=== PATIENT | female | born 1960 | race African-American/Black ===

== ENCOUNTER 2020-11-08 12:21 | Emergency (ER) | payer OTHER ==
--- OUTSIDE RECORDS SUMMARY | 2020-11-08 12:24 | XMS REPORT | Continuity of Care Document ---
:1960 Author Organization [facility] Address [address] [place] [address] Care Team Providers Name Role Phone Unavailable Unavailable Unavailable Problems Condition Condition Condition Status Onset Resolution Last Treating Co mments Source Name Details Category Date Date Treatment Clinician Date Pain in Pain in Problem Active [facility] Right Right Problem Active [facility] Allergies, Adverse Reactions, Alerts This patient has no known allergies or adverse reactions. Medications Ordered Filled Start Stop Current Ordering Indication Dosage Frequency Signature Comments Components Source Medication Medication Date Date Medication? Clinician (SIG) Name Name Verapamil Verapamil Yes Herman not [facility] HCl ER HCl ER Jose defined [facility] XELJANZ XELJANZ Yes Herman not [facility] Jose defined [facility] Prednisolon Prednisolon Yes Herman not [facility] e-Moxifloxa e-Moxifloxa Jose defined [facility] zo [facility] Cyclobenzap Cyclobenzap Yes Herman not [facility] rine HCl rine HCl Jose defined [facility] Methotrexat Methotrexat Yes Herman not [facility] e e Jose defined [facility] Pilocarpine Pilocarpine Yes Herman not [facility] HCl HCl Jose defined [facility] Acetaminoph Acetaminoph Yes Herman not [facility] en-Codeine en-Codeine Jose defined [facility] Procedures This patient has no known procedures. Encounters Start End Encounter Admission Attending Care Care Encounter Source Date/Time Date/Time Type Type Clinicians Facility Department ID 2018-04-06 2018-04-06 Outpatient Letha Logan [id number] [facility] 11:09[facility]00 11[facility]09[facility] 2018-03-08 2018-03-08 Outpatient Letha Logan [id number] [facility] [address] 11:00[facility]00 11[facility]00[facility]00 [facility] Results This patient has no known results.
--- NOTE | 2020-11-08 14:44 | RAD REPORT ---
EXAM DESCRIPTION: CT - Spine Lumbar Wo Con - 11/08/2020 2:31 pm CLINICAL HISTORY: Radiculopathy. PAIN COMPARISON: No comparisons TECHNIQUE: Axial noncontrast CT imaging of the lumbar spine was performed with coronal and sagittal re-formatted images. All CT scans are performed using dose optimization technique as appropriate and may include automated exposure control or mA/KV adjustment according to patient size. FINDINGS: No acute lumbar spine fracture seen. No aggressive marrow pattern or malalignment. Paraspinal tissues are normal in thickness. No paraspinal abscess or hematoma seen. There is degenerative change, mild to moderate in severity involving the lower lumbar spine. No high- grade canal stenosis identified. IMPRESSION: No acute lumbar spine abnormality. Mild to moderate lower lumbar degenerative spondylosis.
--- NOTE | 2020-11-08 15:06 | RAD REPORT ---
EXAM DESCRIPTION: RAD - Chest Pa And Lat (2 Views) - 11/08/2020 2:38 pm CLINICAL HISTORY: CHEST PAIN Chest pain. COMPARISON: CHEST SINGLE VIEW dated 07/26/2014; CHEST PA AND LAT 2 VIEW dated 07/26/2014; CHEST PA AND LAT 2 VIEW dated 09/27/2013; CHEST SINGLE VIEW dated 07/25/2012 FINDINGS: The lungs are clear. The heart is upper limit of normal in size. No displaced fractures. IMPRESSION: No acute or concerning finding suspected.
--- NOTE | 2020-11-08 15:37 | ER ---
Nurse's Notes [facility] Name: Brooke Jackson Age: 60 yrs Sex: Female : 1960 Arrival Date: 11/08/2020 Time: 12:23 Bed 12 Private MD: Germán Concepcion E Diagnosis: Low back pain Presentation: 11/08 13:25 Chief complaint: Patient states: Fell on Aug 13, reports pain to right mid-back and jl7 right rib cage. Coronavirus screen: Client denies travel out of the [place] in the last 14 days. At this time, the client does not indicate any symptoms associated with coronavirus-19. Ebola Screen: No symptoms or risks identified at this time. Initial Sepsis Screen: Does the patient meet any 2 criteria? No. Patient's initial sepsis screen is negative. Does the patient have a suspected source of infection? No. Patient's initial sepsis screen is negative. Risk Assessment: Do you want to hurt yourself or someone else? Patient reports no desire to harm self or others. Onset of symptoms was August 13, 2020. 13:25 Method Of Arrival: Ambulatory [facility] 13:25 Acuity: CARRIE 4 jl7 Triage Assessment: 13:29 General: Appears in no apparent distress. uncomfortable, Behavior is calm, cooperative, jl7 appropriate for age. Pain: Complains of pain in posterior aspect of right lateral abdomen and anterior aspect of right lateral abdomen Pain currently is 8 out of 10 on a pain scale. Historical: - Allergies: 13:29 No Known Allergies; jl7 - PMHx: 13:29 Hypertension; Rheumatoid Arthritis; CVA; jl7 - PSHx: 13:29 dental; Carotid stent; jl7 - Immunization history:: Adult Immunizations up to date, Client reports receiving the 2nd dose of the Covid vaccine. - Social history:: Smoking status: Patient reports the use of cigarette tobacco products, smokes one-half pack cigarettes per day. Screenin:35 Abuse screen: Denies threats or abuse. Denies injuries from another. Nutritional jl7 screening: No deficits noted. Tuberculosis screening: No symptoms or risk factors identified. Fall Risk None identified. Assessment: 15:35 Reassessment: ERP at bedside discussing results and POC. jl7 Vital Signs: 13:25 BP 148 / 83; Pulse 80; Resp 17; Temp 97.1; Pulse Ox 99% ; Weight 92.99 kg; Height 5 ft. jl7 2 in. (157.48 cm); Pain 8/10; 13:25 Body Mass Index 37.49 (92.99 kg, 157.48 cm) jl7 ED Course: 12:23 Patient arrived in ED. mr 12:23 Germán Concepcion MD is Private Physician. mr 13:26 Triage completed. jl7 13:29 Arm band placed on right wrist. jl7 13:41 Anthony Ge, MICHELE is Primary Nurse. jl7 14:00 Patient has correct armband on for positive identification. Call light in reach. Side jl7 rails up X 1. 14:15 Mehran Monk PA is PHCP. jr8 14:15 Bj Aguilera MD is Attending Physician. jr8 14:31 CT Lumbar Spine Wo Con In Process Unspecified. EDMS 14:38 XRAY Chest Pa And Lat (2 Views) In Process Unspecified. EDMS 15:36 Germán Concepcion MD is Referral Physician. jr8 15:43 No provider procedures requiring assistance completed. Patient did not have IV access jl7 during this emergency room visit. Administered Medications: No medications were administered Outcome: 15:36 Discharge ordered by . jr8 15:43 Discharged to home ambulatory. jl7 15:43 Condition: stable 15:43 Discharge instructions given to patient, Instructed on discharge instructions, follow up and referral plans. medication usage, Demonstrated understanding of instructions, follow-up care, medications, Prescriptions given X 3. 15:44 Patient left the ED. jl7 Signatures: Dispatcher [employer] [facility] Polo Adrianne mr Mehran Monk PA PA jrAnthony Valdez, RN RN jl7
--- NOTE | 2020-11-08 15:37 | EDPHYS ---
Physician Documentation [facility] Name: Brooke Jackson Age: 60 yrs Sex: Female : 1960 Arrival Date: 11/08/2020 Time: 12:23 Bed 12 Private MD: Germán Concepcion E ED Physician Bj Aguilera HPI: 11/08 15:19 This 60 yrs old Black Female presents to ER via Ambulatory with complaints of Fall jr8 Injury, Back Pain. 15:19 Onset: The symptoms/episode began/occurred acutely, 3 month(s) ago. Severity of jr8 symptoms: At their worst the symptoms were moderate. The patient has not experienced similar symptoms in the past. The patient has not recently seen a physician. Patient stated that she fell back in July on right side and back. Has low back pain that is constant but since the fall in July has had increased pain that will not go away . Historical: - Allergies: 13:29 No Known Allergies; jl7 - PMHx: 13:29 Hypertension; Rheumatoid Arthritis; CVA; jl7 - PSHx: 13:29 dental; Carotid stent; jl7 - Immunization history:: Adult Immunizations up to date, Client reports receiving the 2nd dose of the Covid vaccine. - Social history:: Smoking status: Patient reports the use of cigarette tobacco products, smokes one-half pack cigarettes per day. ROS: 15:19 Eyes: Negative for injury, pain, redness, and discharge, ENT: Negative for injury, jr8 pain, and discharge, Neck: Negative for injury, pain, and swelling, Cardiovascular: Negative for chest pain, palpitations, and edema Respiratory: Negative for shortness of breath, cough, wheezing, and pleuritic chest pain, Abdomen/GI: Negative for abdominal pain, nausea, vomiting, diarrhea, and constipation, MS/Extremity: Negative for injury and deformity, Skin: Negative for injury, rash, and discoloration, Neuro: Negative for headache, weakness, numbness, tingling, and seizure. 15:19 Back: Positive for pain at rest, pain with movement, of the low back area. Exam: 15:19 Constitutional: This is a well developed, well nourished patient who is awake, alert, jr8 and in no acute distress. Head/Face: Normocephalic, atraumatic. Neck: Trachea midline, no thyromegaly or masses palpated, and no cervical lymphadenopathy. Supple, full range of motion without nuchal rigidity, or vertebral point tenderness. No Meningismus. Cardiovascular: Regular rate and rhythm with a normal S1 and S2. No gallops, murmurs, or rubs. Normal PMI, no JVD. No pulse deficits. Respiratory: Lungs have equal breath sounds bilaterally, clear to auscultation and percussion. No rales, rhonchi or wheezes noted. No increased work of breathing, no retractions or nasal flaring. Abdomen/GI: Soft, non-tender, with normal bowel sounds. No distension or tympany. No guarding or rebound. No evidence of tenderness throughout. Skin: Warm, dry with normal turgor. Normal color with no rashes, no lesions, and no evidence of cellulitis. MS/ Extremity: Pulses equal, no cyanosis. Neurovascular intact. Full, normal range of motion. Neuro: Awake and alert, GCS 15, oriented to person, place, time, and situation. Cranial nerves II-XII grossly intact. Motor strength 5/5 in all extremities. Sensory grossly intact. Cerebellar exam normal. Normal gait. 15:19 Chest/axilla: Palpation: tenderness, that is mild, of the right lateral anterior chest. 15:19 Back: pain, that is mild, of the lumbar area, right mid back and right low back, ROM is painful, normal spinal alignment noted, vertebral tenderness, is appreciated at L2 and L3. Vital Signs: 13:25 BP 148 / 83; Pulse 80; Resp 17; Temp 97.1; Pulse Ox 99% ; Weight 92.99 kg; Height 5 ft. jl7 2 in. (157.48 cm); Pain 8/10; 13:25 Body Mass Index 37.49 (92.99 kg, 157.48 cm) jl7 MDM: 14:15 Patient medically screened. jr8 15:10 Data reviewed: vital signs, nurses notes, radiologic studies, CT scan, plain films. jr8 Data interpreted: Pulse oximetry: on room air is 99 %. Interpretation: normal. Counseling: I had a detailed discussion with the patient and/or guardian regarding: the historical points, exam findings, and any diagnostic results supporting the discharge/admit diagnosis, radiology results, the need for outpatient follow up, a family practitioner, to return to the emergency department if symptoms worsen or persist or if there are any questions or concerns that arise at home. 11/08 14:19 Order name: CT Lumbar Spine Wo Con; Complete Time: 14:48 jr8 11/08 14:19 Order name: XRAY Chest Pa And Lat (2 Views); Complete Time: 15:10 jr8 Administered Medications: No medications were administered Disposition: 11/08/20 15:36 Discharged to Home. Impression: Low back pain. - Condition is Stable. - Discharge Instructions: Back Pain, Adult, Heat Therapy. - Prescriptions for Robaxin 500 mg Oral Tablet - take 2 tablet by ORAL route every 6 hours As needed; 40 tablet. Tramadol 50 mg Oral Tablet - take 1 tablet by ORAL route every 8 hours as needed; 20 tablet. Medrol (Doug) 4 mg Oral Tablets, Dose Pack - take 1 tablet by ORAL route as directed - follow package instructions; 1 packet. - Medication Reconciliation Form, Thank You Letter, Antibiotic Education, Prescription Opioid Use form. - Follow up: Germán Concepcion MD; When: 5 - 6 days; Reason: Recheck today's complaints, Continuance of care, Re-evaluation by your physician. - Problem is new. - Symptoms have improved. Addendum: 11/10/2020 07:41 Co-signature as Attending Physician, Bj Aguilera MD I agree with the assessment and c oconnell plan of care. Signatures: Dispatcher [employer] EDBj Moran MD MD cha Roszak, Josh, PA PA jr8 Anthony Ge, RN RN jl7 Corrections: (The following items were deleted from the chart) 11/08 15:44 15:36 11/08/2020 15:36 Discharged to Home. Impression: Low back pain. Condition is jl7 Stable. Forms are Medication Reconciliation Form, Thank You Letter, Antibiotic Education, Prescription Opioid Use. Follow up: Germán Concepcion; When: 5 - 6 days; Reason: Recheck today's complaints, Continuance of care, Re-evaluation by your physician. Problem is new. Symptoms have improved. jr8
[2020-11-08 15:56] VITALS: BP 148/83; TEMP 97.1; O2SAT 99
== END 2020-11-08 15:44 | disposition home or self-care (01) ==
LOC: ER 12:21
DX: M54.5 Low back pain (principal); I10 Essential (primary) hypertension; F17.210 Nicotine dependence, cigarettes, uncomplicated; Z95.818 Presence of other cardiac implants and grafts
CPT/HCPCS: 71046; 72131; 99283

== ENCOUNTER 2024-08-31 09:10 | Emergency (ER) | payer OTHER ==
--- OUTSIDE RECORDS SUMMARY | 2024-08-31 09:13 | XMS REPORT | Continuity of Care Document ---
Author Name Unknown Address [address] [place] [address] [facility] [employer] Address [address] [place] [address] Care Team Providers Care Interface Analyst Name Role Phone Germán Concepcion Primary Care Physician [phone] Nevaeh Head Attending Clinician Unavailable Radiology Attending Clinician Unavailable RADIOLOGY Attending Clinician Unavailable JGIAR ZAMORA Attending Clinician Unavailable Vaccine, Ang Db Cbc Fam Attending Clinician Unav Jigar Rodriguez MD Attending Clinician [phone] DONIS WOLFF Attending Clinician Unavailable Germán Concepcion Admitting Clinician Unavailable Payers Payer Name Policy Type Policy Number Effective Date Expirati on Date Source Problems Condition Name Condition Details Condition Category Status Onset Date Resolution Date Last Treatment Date Treating Clinician Comments Source Pain in joint of right knee Pain in joint of right knee Problem Active [facility] Right sided sciatica Right sided sciatica Problem Active [facility] Allergies, Adverse Reactions, Alerts Allergy Name Allergy Type Status Severity Reaction(s) Onset Date Inactive Date Treating Clinician Comments Source NO KNOWN ALLERGIE S Drug Class Active [facility] Social History Social Habit Start Date Stop Date Quantity Comments Source Sexual orientation [facility] Sex assigned at 1960 00:00:00 1960 00:00:00 [facility] Smoking Status Start Date Stop Date Source Tobacco smoking consumption unknown [facility] Medications Ordered Medication Name Filled Medication Name Start Date Stop Date Current Medication? Ordering Clinician Indication Dosage Frequency Signature (SIG) Comments Components Source Cyclobenzap rine HCl Cyclobenzap rine HCl Yes Herman Jose not defined [facility] Methotrexat e Methotrexat e Yes Herman Jose not defined [facility] Pilocarpine HCl Pilocarpine HCl Yes Herman Jose not defined [facility] Acetaminoph en-Codeine #3 Acetaminoph en-Codeine #3 Yes Herman Jose not defined [facility] Verapamil HCl ER Verapamil HCl ER Yes Herman Jose not defined [facility] XELJANZ XELJANZ Yes Herman Jose not defined [facility] Prednisolon e-Moxifloxa zo Prednisolon e-Moxifloxa zo Yes Herman Jose not defined [facility] Immunizations Ordered Immunization Name Filled Immunization Name Date Status Comments Source SARS-COV-2 COVID-19 MODERNA BOOSTER VACCINE 2021-05-13 00:00:00 Completed [facility] SARS-COV-2 COVID-19 MODERNA 0.25ML BOOSTER VACCINE 2021-05-13 00:00:00 Completed [facility] SARS-COV-2 COVID-19 MODERNA VACCINE 2020-09-02 00:00:00 Completed [facility] SARS-COV-2 COVID-19 MODERNA 12+ YRS VACCINE 2020-09-02 00:00:00 Completed [facility] SARS-COV-2 COVID-19 MODERNA 12+ YRS VACCINE 2020-08-05 00:00:00 Completed [facility] SARS-COV-2 COVID-19 MODERNA VACCINE 2020-08-05 00:00:00 Completed [facility] Procedures Procedure Date / Time Performed Performing Clinicia n Source DEXA AXIAL (HIP AND SPINE) 2024-04-14 15:48:46 Requisition, Paper [facility] CT LUNG CANCER SCREENING 2024-04-14 15:37:28 Requisition, Paper [facility] SARS-COV-2 COVID-19 VACCINE BOOSTER,0.25ML,IM (MODERNA) 2021-05-13 20:49:21 Doctor Unassigned, [address] [facility] Encounters Start Date/Time End Date/Time Encounter Type Admission Type Attending Clinicians Care Facility Care Department Encounter ID Source 2022-08-01 15:52:39 Outpatient [facility] [id number] [facility] 2021-12-17 14:02:10 Outpatient [facility] [id number] [facility] 2021-07-24 10:59:21 Outpatient Nevaeh Head [facility] [id number] [facility] 2021-07-24 10:57:37 Outpatient Nevaeh Head [facility] [id number] [facility] 2024-04-14 10:21:38 2024-04-14 23:59:00 Hospital Encounter Radiology Radiology [facility] [id number] [facility] 2024-04-14 10:20:57 2024-04-14 10:20:57 Hospital Encounter Radiology Radiology [facility] [id number] [facility] 2024-04-14 10:20:57 2024-04-14 10:20:57 Outpatient R RADIOLOGY [facility] [id number] [facility] 2024-04-07 00:00:00 2024-04-07 00:00:00 Outpatient R RADIOLOGY [facility] [id number] [facility] 2024-04-06 00:00:00 2024-04-06 00:00:00 Outpatient R RADIOLOGY [facility] [id number] [facility] 2021-05-13 14:00:00 2021-05-13 14:59:50 Outpatient R JIGAR ZAMORA [facility] [id number] [facility] 2021-05-13 13:40:09 2021-05-13 13:50:09 Imm/Inj Visit Vaccine, Ang Db Cbc Fam Jigar Zamora [facility] [id number] [facility] 2020-09-02 11:15:00 2020-09-02 11:15:00 Outpatient DONIS LANG [facility] [id number] [facility] 2020-08-05 11:40:00 2020-08-05 11:40:00 Outpatient [facility] [id number] [facility] 2018-04-06 11:09:00 2018-04-06 11:09:00 Out[facility] [id number] [facility] 2018-03-08 11:00:00 2018-03-08 11:00:00 Outpatient [facility] [id number] [facility] Results Test Description Test Time Test Comments Results Resul t Comments Source DEXA AXIAL (HIP AND SPINE) 2024-03-29 15:50:35 HISTORY: Osteoporosis screening study. TECHNIQUE: Bone density estimation is done using DEXA scan, over the righthip and lumbar spines. FINDINGS: Details of the results are enclosed for your review. The summaryis as follows. RIGHT HIP:BMD value is 0.844 gm/sq cm, with T-score of - 1.3. Estimated BMD in theneck is 0.812 g/sq cm with T score of -1.6. LUMBAR SPINES:Average BMD value from L1 through L4 is 1.113 gm/sq cm, with T-score - 0.7.Cholecystectomy clips visualized. CONCLUSION: Mild osteopenia in right femur. ASSESSMENT: WHO-definitions: T-score normal: +/- 1 SD around the meanosteopenia: >1 to 2.4 SD below the meanosteoporosis: >2.5 SD below the meanFracture risk doubles for each 1.5 SD below the mean. [facility] CT LUNG CANCER SCREENING 2024-10-1 7 15:46:01 Result: Exam Reviewed: CT LUNG CA SCREEN LOW DOSE Comparison: ?None. Clinical Indication: ?63 -year-old, ?female for lung cancer screening TECHNIQUE: A low dose helical CT CHEST was performed. The chest was studiedin helical mode with prospective reconstructions of 1 mm slices.Multiplanar MIPS were reconstructed from the axial images. NOTE: This studywas performed for the specific purposes of lung cancer screening and is notan alternative to diagnostic chest CT. RADIATION DOSE: CT dose length product DLP (Dose Length Product) = 1.53+43.59 mGycm FINDINGS: Lung Nodules: Lung Parenchyma: Minimal linear fibrotic changes in posterior left upperlobe. Subtle findings of small emphysematous bulla is in the lungs. Airways: Unremarkable Pleura: Focal nodularity along the posterior left lower chest (3:114, 134),medial right middle lobe (3:143 through 127) Mediastinum: No abnormality is noted. Lymph Nodes: Calcifications noted in some of the right paratracheal andsubcarinal lymph nodes. Thyroid Gland: Unremarkable Esophagus: Normal in appearance Heart and Pericardium: Normal heart size and normal caliber of the greatvessels. ?No pericardial effusion. Triple-vessel coronary atherosclerosis. Abdomen: Normal in appearance in this low-dose evaluation. Bones, and soft tissues: Dense calcifications in the upper medial leftchest/breast tissue noted. Cholecystectomy clips are seen. Matrix/lowerthoracic degenerative spondylosis with dextroscoliosis. [facility]
[2024-08-31] MEDS ORDERED: NA CHLORIDE 0.9% 500 ML ONE ×2 (09:48→11:51)
[2024-08-31 10:05] LABS: Absolute Lymphocytes (CBC) 0.8 K/uL (0.7-4.9); Absolute Monocytes 0.2 K/uL (0.1-1.3); Basophils % 1.2 % (0-1.3); Eosinophils % 1.8 % (0-4.4); Hematocrit 32.5 % (36.0-45.0); Hemoglobin 10.8 g/dL (12.0-15.0); Lymphocytes % 38.2 % (15.3-44.8); MCH 31.6 pg (27.0-35.0); MCHC 33.4 g/dL (32.0-36.0); MCV 94.7 fL (80-100); Neutrophils % 47.8 % (41.7-73.7); Nucleated Red Blood Cells % 0.6 % (0-0); Platelets 153 thou/uL (152-406); RBC Red Blood Cell Count 3.43 M/uL (3.86-4.86)
[2024-08-31 10:24] LABS: Anion Gap 7.5 mEq/L (5.0-15.0); Magnesium 1.9 mg/dL (1.6-2.4)
[2024-08-31 10:27] LABS: Thyroid Stimulating Hormone 23.2 uIU/mL (0.358-3.740)
[2024-08-31 10:29] LABS: Potassium 2.5 mEq/L (3.5-5.1)
--- NOTE | 2024-08-31 11:29 | RAD REPORT ---
EXAMINATION: ONE VIEW CHEST XR CLINICAL INDICATION: Female, 63 years old.,COUGH TECHNIQUE: Frontal chest projection is submitted. Examination is limited by patient positioning and t echnique. COMPARISON: 11/08/2020 FINDINGS: The lungs are well inflated and clear. No pneumothorax or sizable effusion. The heart is normal in s ize. Mediastinal contours are unremarkable. Implantable rhythm monitoring device along the left chest wall, stable. IMPRESSION: No acute intrathoracic abnormalities.
[2024-08-31] MEDS ORDERED: POTASSIUM 25 MEQ EFFERV TAB ONE (11:51)
[2024-08-31] MEDS ORDERED: KCL 20 MEQ/100 mL IVPB 100 ML IV ONE (11:52)
--- NOTE | 2024-08-31 14:07 | ER ---
Nurse's Notes [facility] Name: Brooke Jackson Age: 63 yrs Sex: Female : 1960 Arrival Date: 08/31/2024 Time: 09:10 Bed 7 Private MD: Diagnosis: Hypokalemia Presentation: 08/31 09:25 Chief complaint: Patient states: Potassium 2.8 with blood draw yesterday. Was told to 1 come to ED for further evaluation. Feels weak and dizzy for a few days. Coronavirus screen: Client denies travel out of the [place] in the last 14 days. cough unrelated to allergies, Client presents with at least one sign or symptom that may indicate coronavirus-19. Standard/surgical mask placed on the client. Ebola Screen: Patient denies travel to an Ebola-affected area in the 21 days before illness onset. Initial Sepsis Screen: Does the patient meet any 2 criteria? No. Patient's initial sepsis screen is negative. Does the patient have a suspected source of infection? No. Patient's initial sepsis screen is negative. Risk Assessment: Do you want to hurt yourself or someone else? Patient reports no desire to harm self or others. Onset of symptoms was August 30, 2024. 09:25 Method Of Arrival: Ambulatory 1 09:25 Acuity: CARRIE 2 1 Triage Assessment: 13:30 General: Appears. ph Historical: - Allergies: 09:18 No Known Drug Allergies; ll1 - PMHx: 09:18 CVA; Hypertension; Rheumatoid Arthritis; 1 - Immunization history:: Adult Immunizations up to date. - Infectious Disease History:: Denies. - Social history:: Smoking status: Patient denies any tobacco usage or history of. - Family history:: not pertinent. Screenin:29 [facility] ED Fall Risk Assessment (Adult) History of falling in the last 3 months, ph including since admission No falls in past 3 months (0 pts) Confusion or Disorientation No (0 pts) Intoxicated or Sedated No (0 pts) Impaired Gait No (0 pts) Mobility Assist Device Used No (0 pt) Altered Elimination No (0 pt) Score/Fall Risk Level 0 - 2 = Low Risk Oriented to surroundings, Maintained a safe environment, Hourly rounding (assess needs \T\ fall precautionary measures) done. Abuse screen: Denies threats or abuse. Denies injuries from another. Nutritional screening: No deficits noted. Tuberculosis screening: No symptoms or risk factors identified. Assessment: 10:30 General: Appears in no apparent distress. comfortable, Behavior is calm, cooperative. ph Pain: Denies pain. Neuro: Level of Consciousness is awake, alert, obeys commands, Oriented to person, place, time, situation. Cardiovascular: Reports lightheadedness, Capillary refill < 3 seconds in bilateral fingers Patient's skin is warm and dry. Respiratory: Airway is patent Respiratory effort is even, unlabored. Derm: Skin is normal. Musculoskeletal: Circulation, motion, and sensation intact. Range of motion: intact in all extremities. Vital Signs: 09:25 BP 142 / 93; Pulse 73; Resp 17; Temp 98; Pulse Ox 99% ; Pain 0/10; ll1 12:09 BP 132 / 80; Pulse 75; Pulse Ox 98% ; rs6 13:31 BP 128 / 75; Pulse 71; Resp 18; Temp 98; Pulse Ox 99% on R/A; ph 09:25 Pain Scale: Adult ll1 ED Course: 09:15 Patient arrived in ED. al6 09:17 Josef Morris MD is Attending Physician. rt 09:19 Arm band placed on. ll1 09:26 Triage completed. ll1 10:27 TSH Sent. bc6 10:27 Basic Metabolic Panel Sent. bc6 10:27 Magnesium Sent. bc6 10:27 Troponin HS Sent. bc6 10:27 Initial lab(s) drawn, by me, sent to lab. Missed attempt(s): 22 gauge in left bc6 antecubital area. Bleeding controlled, band aid applied, catheter tip intact. 10:27 Inserted saline lock: 22 gauge in right antecubital area, using aseptic technique. ap3 Blood collected. Flushed with 10 mL NS. 10:37 XRAY Chest (1 view) In Process Unspecified. EDMS 10:43 Client placed on continuous cardiac and pulse oximetry monitoring. NIBP monitoring ap3 applied. vehicle monitor technician on. Pulse ox on. NIBP on. 10:43 EKG done, by ED staff, reviewed by Josef Morris MD. ap3 12:24 Felipa Sanders, RN is Primary Nurse. ph 13:29 Patient has correct armband on for positive identification. Bed in low position. Call ph light in reach. Side rails up X2. 14:45 Provided Education on: discharge instructions . ap3 14:45 No provider procedures requiring assistance completed. IV discontinued, intact, ap3 bleeding controlled, No redness/swelling at site. Pressure dressing applied. Administered Medications: 10:29 Drug: NS 0.9% IV 500 ml 500 ml IV at 1 bolus once; to be given as a bolus over 30 ap3 minutes Volume: 500 ml; Route: IV; Rate: 1 bolus; Site: left antecubital; 11:00 Follow up: Response: No adverse reaction; IV Status: Completed infusion; IV Intake: ph 500ml 12:25 Drug: Potassium PO Effervescent Tablet 50 mEq PO once; dissolve in 4 ounces of water or ph juice Route: PO; 14:44 Follow up: Response: No adverse reaction ap3 12:25 Drug: Potassium Chloride IV 20 mEq IV at calculated rate once; administer over 1-2 ph hours Route: IV; Rate: calculated rate; Site: left antecubital; 14:45 Follow up: IV Status: Completed infusion ap3 Medication: 13:31 VIS not applicable for this client. ph Intake: 11:00 IV: 500ml; Total: 500ml. ph Outcome: 14:07 Discharge ordered by . rt 14:45 Discharged to home ambulatory, with family, ap3 14:45 Condition: good 14:45 Discharge instructions given to patient, Instructed on discharge instructions, follow up and referral plans. medication usage, Demonstrated understanding of instructions, follow-up care, medications, Prescriptions given X 1, 14:45 Patient left the ED. ap3 Signatures: Dispatcher [employer] Felipa Karimi RN RN Sofia Pedraza RN RN ap3 Ana Maria He RN RN ll1 Josef Morris MD MD rt Rizwana Mcneil Ryan rs6 Saloni Purcell6
--- NOTE | 2024-08-31 14:07 | EDPHYS ---
Physician Documentation [facility] Name: Brooke Jackson Age: 63 yrs Sex: Female : 1960 Arrival Date: 08/31/2024 Time: 09:10 Bed 7 Private MD: ED Physician Josef Morris HPI: 08/31 10:53 This 63 yrs old Black Female presents to ER via Ambulatory with complaints of Abnormal rt Lab Results. 10:53 Patient presents to the ED with reported low potassium on outpatient labs drawn rt yesterday. Patient reportedly has been feeling weak, has had a cough and generally not feeling well. Denies other acute complaints at this time, symptoms are moderate in severity, no other aggravating or alleviating factors.. Historical: - Allergies: :18 No Known Drug Allergies; ll1 - PMHx: :18 CVA; Hypertension; Rheumatoid Arthritis; ll1 - Immunization history:: Adult Immunizations up to date. - Infectious Disease History:: Denies. - Social history:: Smoking status: Patient denies any tobacco usage or history of. - Family history:: not pertinent. ROS: 11:09 Constitutional: Negative for fever, chills, and weight loss, Cardiovascular: Negative rt for chest pain, palpitations, and edema, Respiratory: Negative for shortness of breath, cough, wheezing, and pleuritic chest pain, Abdomen/GI: Negative for abdominal pain, nausea, vomiting, diarrhea, and constipation, MS/Extremity: Negative for injury and deformity, Skin: Negative for injury, rash, and discoloration, 11:09 Neuro: Positive for weakness, Negative for altered mental status, Exam: 11:09 Constitutional: This is a well developed, well nourished patient who is awake, alert, rt and in no acute distress. Chest/axilla: Normal chest wall appearance and motion. Nontender with no deformity. No lesions are appreciated. Cardiovascular: Regular rate and rhythm with a normal S1 and S2. No gallops, murmurs, or rubs. Normal PMI, no JVD. No pulse deficits. Respiratory: Lungs have equal breath sounds bilaterally, clear to auscultation and percussion. No rales, rhonchi or wheezes noted. No increased work of breathing, no retractions or nasal flaring. Abdomen/GI: Soft, non-tender, with normal bowel sounds. No distension or tympany. No guarding or rebound. No evidence of tenderness throughout. Skin: Warm, dry with normal turgor. Normal color with no rashes, no lesions, and no evidence of cellulitis. MS/ Extremity: Pulses equal, no cyanosis. Neurovascular intact. Full, normal range of motion. 11:09 ECG was reviewed by the Attending Physician. Vital Signs: 09:25 BP 142 / 93; Pulse 73; Resp 17; Temp 98; Pulse Ox 99% ; Pain 0/10; ll1 12:09 BP 132 / 80; Pulse 75; Pulse Ox 98% ; rs6 13:31 BP 128 / 75; Pulse 71; Resp 18; Temp 98; Pulse Ox 99% on R/A; ph 09:25 Pain Scale: Adult ll1 MDM: 09:23 Medical Screening Exam initiated rt 16:30 Differential Diagnosis Hypokalemia, hypomagnesemia. Data reviewed: vital signs, nurses rt notes, lab test result(s), EKG. Consideration of Admission/Observation Escalation of care including admission/observation considered. 16:32 Consideration of Admission/Observation Patient with hypokalemia, no other significant rt lab abnormalities, EKG is unremarkable. Symptoms are improving after potassium repletion, no benefit from admission at this time, is stable for outpatient care, return precautions discussed.. I considered the following discharge prescriptions or medication management in the emergency department Medications were administered in the Emergency Department. See MAR. Care significantly affected by the following chronic conditions: Hypertension. Counseling: I had a detailed discussion with the patient and/or guardian regarding the historical points, exam findings, and any diagnostic results supporting the discharge/admit diagnosis, lab results, the need for outpatient follow up, to return to the emergency department if symptoms worsen or persist or if there are any questions or concerns that arise at home. Response to treatment: the patient's symptoms have markedly improved after treatment. 08/31 09:31 Order name: Basic Metabolic Panel; Complete Time: 10:51 rt 08/31 09:31 Order name: CBC with Diff; Complete Time: 10:29 rt 08/31 09:31 Order name: Magnesium; Complete Time: 10:51 rt 08/31 09:31 Order name: Troponin HS; Complete Time: 10:51 rt 08/31 09:31 Order name: TSH; Complete Time: 10:51 rt 08/31 10:32 Order name: T4 Free; Complete Time: 10:51 EDMS 08/31 09:31 Order name: XRAY Chest (1 view); Complete Time: 11:32 rt 08/31 09:31 Order name: Cardiac monitoring; Complete Time: 10:43 rt 08/31 09:31 Order name: EKG - Nurse/Tech; Complete Time: 10:43 rt 08/31 09:31 Order name: IV Saline Lock; Complete Time: 10:28 rt 08/31 09:31 Order name: Labs collected and sent; Complete Time: 10:27 rt 08/31 09:31 Order name: O2 Per Protocol; Complete Time: 10:43 rt 08/31 09:31 Order name: O2 Sat Monitoring; Complete Time: 10:43 rt EC:09 Rate is 70 beats/min. Rhythm is regular, Normal Sinus Rhythm with No ectopy. QRS [place] rt is Normal. [place] interval is normal. QRS interval is normal. QT interval is normal. No Q waves. T waves are Normal. No ST changes noted. Interpreted by me. Administered Medications: 10:29 Drug: NS 0.9% IV 500 ml 500 ml IV at 1 bolus once; to be given as a bolus over 30 ap3 minutes Volume: 500 ml; Route: IV; Rate: 1 bolus; Site: left antecubital; 11:00 Follow up: Response: No adverse reaction; IV Status: Completed infusion; IV Intake: ph 500ml 12:25 Drug: Potassium PO Effervescent Tablet 50 mEq PO once; dissolve in 4 ounces of water or ph juice Route: PO; 14:44 Follow up: Response: No adverse reaction ap3 12:25 Drug: Potassium Chloride IV 20 mEq IV at calculated rate once; administer over 1-2 ph hours Route: IV; Rate: calculated rate; Site: left antecubital; 14:45 Follow up: IV Status: Completed infusion ap3 Disposition Summary: 08/31/24 14:07 Discharge Ordered Notes: Location: Home rt Problem: new rt Symptoms: have improved rt Condition: Stable rt Diagnosis - Hypokalemia rt Followup: rt - With: Private Physician - When: 2 - 3 days - Reason: Discharge Instructions: - Discharge Summary Sheet rt - Hypokalemia rt Forms: - Medication Reconciliation Form rt - Antibiotic Education rt - Prescription Opioid Use rt - Patient Portal Instructions rt - Leadership Thank You Letter rt Prescriptions: - Potassium Chloride 10 mEq Oral Tablet - take 1 tablet ORAL route every 12 hours; 30 tablet; Refills: 0, Product rt Selection Permitted Signatures: Dispatcher [employer] EDFelipa Spicer, RN RN Sofia Pedroza RN RN ap3 Ana Maria He RN RN ll1 Josef Morris MD MD rt Corrections: (The following items were deleted from the chart) 09:32 09:32 BASIC METABOLIC PANEL+C.LAB.BRZ ordered. EDMS EDMS 09:32 09:32 CBC+H.LAB.BRZ ordered. EDMS EDMS 09:32 09:32 MAGNESIUM+C.LAB.BRZ ordered. EDMS EDMS 09:32 09:32 Troponin High Sensitivity+C.LAB.BRZ ordered. EDMS EDMS 09:32 09:32 THYROID STIMULAT HORMONE+C.LAB.BRZ ordered. EDMS EDMS 09:32 09:32 Chest Single View+RAD.RAD.BRZ ordered. EDMS EDMS
[2024-08-31 15:12] VITALS: TEMP 98
[2024-08-31 15:18] VITALS: BP 128/75; O2SAT 99
== END 2024-08-31 14:45 | disposition home or self-care (01) ==
LOC: ER 09:10 → SUPCPDRO 09:10 → ER 14:45
DX: E87.6 Hypokalemia (principal); R05.9 Cough, unspecified
CPT/HCPCS: 85025; 80048; 36415; 83735; 84443; 84484; 84439; 71045; J3480; J7040 ×2; 93005

== ENCOUNTER 2024-09-06 11:16 | Emergency (ER) | payer OTHER ==
--- OUTSIDE RECORDS SUMMARY | 2024-09-06 11:19 | XMS REPORT | Continuity of Care Document ---
Author Name Unknown Address [address] [place] [address] [facility] Address [address] [place] [address] Care Team Providers Care [employer] Energy Advisor Name Role Phone Germán Concepcion Primary Care Physician [phone] Nevaeh Head Attending Clinician Unavailable Radiology Attending Clinician Unavailable RADIOLOGY Attending Clinician Unavailable JIGAR ZAMORA Attending Clinician Unavailable Vaccine, Ang Db Cbc Fam Attending Clinician Unav Jigar Rodriguez MD Attending Clinician [phone] DONIS WOLFF Attending Clinician Unavailable Germán Concepcion Admitting Clinician Unavailable Payers Payer Name Policy Type Policy Number Effective Date Expirati on Date Source Problems Condition Name Condition Details Condition Category Status Onset Date Resolution Date Last Treatment Date Treating Clinician Comments Source Pain in joint of right knee Pain in joint of right knee Problem Active [facility] Right sided sciatica Right sided sciatica Problem Active [facility] Allergies, Adverse Reactions, Alerts Allergy Name Allergy Type Status Severity Reaction(s) Onset Date Inactive Date Treating Clinician Comments Source NO KNOWN ALLERGIE S Drug Class Active [facility] Social History Social Habit Start Date Stop Date Quantity Comments Source Sexual orientation U [facility] Sex assigned at 1960 00:00:00 1960 00:00:00 [facility] Smoking Status Start Date Stop Date Source Tobacco smoking consumption unknown [facility] Medications Ordered Medication Name Filled Medication Name Start Date Stop Date Current Medication? Ordering Clinician Indication Dosage Frequency Signature (SIG) Comments Components Source Cyclobenzap rine HCl Cyclobenzap rine HCl Yes Herman Jose not defined [facility] Methotrexat e Methotrexat e Yes Herman Jose not defined [facility] Pilocarpine HCl Pilocarpine HCl Yes Herman Jose not defined [facility] Acetaminoph en-Codeine #3 Acetaminoph en-Codeine #3 Yes Herman Jose not defined [facility] Verapamil HCl ER Verapamil HCl ER Yes Herman Jose not defined [facility] XELJANZ XELJANZ Yes Herman Jose not defined [facility] Prednisolon e-Moxifloxa zo Prednisolon e-Moxifloxa zo Yes Herman Jose not defined [facility] Immunizations Ordered Immunization Name Filled Immunization Name Date Status Comments Source SARS-COV-2 COVID-19 MODERNA BOOSTER VACCINE 2021-05-13 00:00:00 Completed [facility] SARS-COV-2 COVID-19 MODERNA 0.25ML BOOSTER VACCINE 2021-05-13 00:00:00 Completed [facility] SARS-COV-2 COVID-19 MODERNA VACCINE 2020-09-02 00:00:00 Completed [facility] SARS-COV-2 COVID-19 MODERNA 12+ YRS VACCINE 2020-09-02 00:00:00 Completed [facility] SARS-COV-2 COVID-19 MODERNA 12+ YRS VACCINE 2020-08-05 00:00:00 Completed [facility] SARS-COV-2 COVID-19 MODERNA VACCINE 2020-08-05 00:00:00 Completed [facility] Procedures Procedure Date / Time Performed Performing Clinicia n Source DEXA AXIAL (HIP AND SPINE) 2024-04-14 15:48:46 Requisition, Paper [facility] CT LUNG CANCER SCREENING 2024-04-14 15:37:28 Requisition, Paper [facility] SARS-COV-2 COVID-19 VACCINE BOOSTER,0.25ML,IM (MODERNA) 2021-05-13 20:49:21 Doctor Unassigned, [place] [facility] Encounters Start Date/Time End Date/Time Encounter Type Admission Type Attending Clinicians Care Facility Care Department Encounter ID Source 2022-08-01 15:52:39 Outpatient [facility] [id number] [facility] 2021-12-17 14:02:10 Outpatient [facility] [id number] [facility] 2021-07-24 10:59:21 Outpatient Nevaeh Head [facility] [id number] [facility] 2021-07-24 10:57:37 Outpatient Nevaeh Head [facility] [id number] [facility] 2024-04-14 10:21:38 2024-04-14 23:59:00 Hospital Encounter Radiology Radiology [facility] [id number] [facility] 2024-04-14 10:20:57 2024-04-14 10:20:57 Outpatient R RADIOLOGY [facility] [id number] [facility] 2024-04-14 10:20:57 2024-04-14 10:20:57 Hospital Encounter Radiology Radiology [facility] [id number] [facility] 2024-04-07 00:00:00 2024-04-07 00:00:00 Outpatient R RADIOLOGY [facility] [id number] [facility] 2024-04-06 00:00:00 2024-04-06 00:00:00 Outpatient R RADIOLOGY [facility] [id number] [facility] 2021-05-13 14:00:00 2021-05-13 14:59:50 Outpatient R JIGAR ZAMORA [facility] [id number] [facility] 2021-05-13 13:40:09 2021-05-13 13:50:09 Imm/Inj Visit Vaccine, Ang Db Cbc Fam Jigar Zamora [facility] [id number] [facility] 2020-09-02 11:15:00 2020-09-02 11:15:00 Outpatient DONIS LANG [facility] [id number] [facility] 2020-08-05 11:40:00 2020-08-05 11:40:00 Outpatient [facility] [id number] [facility] 2018-04-06 11:09:00 2018-04-06 11:09:00 Outpatient [facility] [id number] [facility] 2018-03-08 11:00:00 2018-03-08 11:00:00 Outpatient [facility] [id number] [facility] Results Test Description Test Time Test Comments [...] for each 1.5 SD below the mean. [facility] CT LUNG CANCER SCREENING 2024-03-29 15:46:01 Result: Exam Reviewed: CT LUNG CA [...] are seen. Matrix/lowerthoracic degenerative spondylosis with dextroscoliosis. [facility]
[2024-09-06 12:20] LABS: Specific Gravity 1.025 (1.005-1.030); Sqamous Epithelial <5 /HPF (None Seen); Urine Bacteria 20-50 /HPF (<20); Urine Bilirubin NEGATIVE (Negative); Urine Blood Trace (Negative); Urine Clarity Extremely Turbid (Clear); Urine Color Light-Orange (Yellow); Urine Culture Reflex Order REFLEXED; Urine Glucose NEGATIVE (Negative); Urine Ketones 1+ (Negative); Urine Microscopic Reflex YN ORDER UMIC; Urine Mucus Slight /HPF (None Seen); Urine Nitrite NEGATIVE (Negative); Urine Protein 1+ (Negative); Urine RBC 21-50 /HPF (None Seen); Urine Urobilinogen 1+ (Normal); Urine WBC >50 /HPF (<5); Urine WBC Clump Rare /HPF (None Seen); Urine pH 6.5 (5.0-7.0)
[2024-09-06 12:42] LABS: Albumin/Globulin Ratio 0.7 (1.1-1.8); Anion Gap 7.8 mEq/L (5.0-15.0); Bilirubin Total 1.5 mg/dL (0.2-1.0); Globulin 4.4 g/dL (2.3-3.5); Potassium 2.8 mEq/L (3.5-5.1); Protein, Total 7.4 g/dL (6.4-8.2)
[2024-09-06 12:44] LABS: Absolute Lymphocytes (CBC) 0.9 K/uL (0.7-4.9); Absolute Monocytes 0.8 K/uL (0.1-1.3); Absolute Neutrophil 6.3 K/uL (1.8-8.0); Basophils % 0.5 % (0-1.3); Hematocrit 31.9 % (36.0-45.0); Hemoglobin 10.9 g/dL (12.0-15.0); Lymphocytes % 11.4 % (15.3-44.8); MCH 31.8 pg (27.0-35.0); MCHC 34.3 g/dL (32.0-36.0); MPV 10.1 fL (7.6-11.3); Monocytes % 9.7 % (3.3-12.3); Neutrophils % 78.4 % (41.7-73.7); Nucleated Red Blood Cells % 0.1 % (0-0); Platelets 110 thou/uL (152-406); RBC Red Blood Cell Count 3.43 M/uL (3.86-4.86); Red Cell Distribution Width 14.1 % (12.1-15.2)
--- NOTE | 2024-09-06 13:26 | RAD REPORT ---
EXAMINATION: ONE VIEW CHEST XR CLINICAL INDICATION: DYSPNEA TECHNIQUE: Frontal chest projection is submitted. Examination is limited by patient positioning and t echnique. COMPARISON: 08/31/2024 FINDINGS: Mild bilateral interstitial lung prominence, greater on the left suggests mild interstitial pulmonary edema or bronchitis. No focal consolidation typical of bacterial pneumonia seen. The heart is mildly prominent in size.
[2024-09-06] MEDS ORDERED: CEFTRIAXONE 1000 MG/VIAL ONE ×2 (15:13→16:09)
--- NOTE | 2024-09-06 15:42 | ER ---
Nurse's Notes [facility] Name: Brooke Jackson Age: 63 yrs Sex: Female : 1960 Arrival Date: 09/06/2024 Time: 11:16 Bed 5 Private MD: Diagnosis: UTI/ Urinary tract infection, site not specified Presentation: 09/06 11:29 Chief complaint: Patient states: she has been having frequent falls, and increase in ap3 urination over the last few days. patient also reports that she is starting to having "blood in her urination.". Coronavirus screen: At this time, the client does not indicate any symptoms associated with coronavirus-19. Ebola Screen: No symptoms or risks identified at this time. Initial Sepsis Screen: Does the patient meet any 2 criteria? No. Patient's initial sepsis screen is negative. Does the patient have a suspected source of infection? No. Patient's initial sepsis screen is negative. Risk Assessment: Do you want to hurt yourself or someone else? Patient reports no desire to harm self or others. Onset of symptoms is unknown. 11:29 Method Of Arrival: EMS: [facility] ap3 11:29 Acuity: CARRIE 3 ap3 Triage Assessment: 11:32 General: Appears in no apparent distress. Behavior is calm, cooperative, appropriate ap3 for age. Pain: Denies pain. Neuro: Level of Consciousness is awake, alert, obeys commands, Oriented to person, place, time, situation. Cardiovascular: Patient's skin is warm and dry. Respiratory: Airway is patent Respiratory effort is even, unlabored, Respiratory pattern is regular, symmetrical. : Reports urinary frequency. Historical: - Allergies: 11:31 No Known Allergies; ap3 - Home Meds: 11:31 Plavix Oral [Active]; Lipitor Oral [Active]; Potassium Chloride Oral [Active]; ap3 Verapamil Oral [Active]; - PMHx: 11:31 CVA; Hypertension; Rheumatoid Arthritis; ap3 - Immunization history:: Client reports receiving the 2nd dose of the Covid vaccine, Flu vaccine is up to date. - Infectious Disease History:: Denies. - Social history:: Smoking status: Patient denies any tobacco usage or history of. Screenin:33 Abuse screen: Denies threats or abuse. Nutritional screening: No deficits noted. ap3 Tuberculosis screening: No symptoms or risk factors identified. 12:05 [facility] ED Fall Risk Assessment (Adult) History of falling in the last 3 months, me1 including since admission Yes- fall prone (multiple falls) (3 pts) Confusion or Disorientation No (0 pts) Intoxicated or Sedated No (0 pts) Impaired Gait Yes (1 pt) Mobility Assist Device Used No (0 pt) Altered Elimination No (0 pt) Score/Fall Risk Level 0 - 2 = Low Risk Maintained a safe environment, Provided non-skid footwear, Hourly rounding (assess needs \\T\\ fall precautionary measures) done. Assessment: 12:05 General: Appears well groomed, well developed, well nourished, Behavior is calm, me1 cooperative, appropriate for age, Reports she has been having frequent falls, and increase in urination over the last few days. patient also reports that she is starting to having "blood in her urination.". Pain: Denies pain. Neuro: Level of Consciousness is awake, alert, obeys commands, Oriented to person, place, time, situation, Appropriate for age. Neuro: Reports dizziness, at times. Cardiovascular: Patient's skin is warm and dry. Respiratory: Airway is patent Respiratory effort is even, unlabored, Respiratory pattern is regular, symmetrical. GI: No signs and/or symptoms were reported involving the gastrointestinal system. : Reports urinary frequency, blood in urine. EENT: No signs and/or symptoms were reported regarding the EENT system. Derm: Skin is intact, is healthy with good turgor, Skin is pink, warm \\T\\ dry. Musculoskeletal: Reports generalized weakness. Vital Signs: 11:29 BP 125 / 89; Pulse 93; Resp 18; Temp 99.9; Pulse Ox 98% on R/A; Weight 69.85 kg; Height ap3 5 ft. 2 in. ; 12:00 BP 112 / 62; Pulse 91; Resp 18; Pulse Ox 96% ; me1 13:00 BP 110 / 72; Pulse 83; Resp 19; Pulse Ox 95% ; me1 14:00 BP 117 / 64; Pulse 82; Resp 20; Pulse Ox 96% ; me1 16:21 BP 115 / 75; Pulse 91; Resp 16; Pulse Ox 96% on R/A; id 11:29 Body Mass Index 28.17 (69.85 kg, 157.48 cm) ap3 ED Course: 11:29 Patient arrived in ED. ap3 11:30 Triage completed. ap3 11:32 Jonatan Sosa MD is Attending Physician. jj9 11:32 Provided Education on: call light education. Client placed on continuous cardiac and ap3 pulse oximetry monitoring. NIBP monitoring applied. satellite project site monitor on. Pulse ox on. NIBP on. 11:33 Arm band placed on right wrist. ap3 11:42 Sofia Pedraza, RN is Primary Nurse. ap3 12:05 Patient has correct armband on for positive identification. Bed in low position. Call me1 light in reach. Side rails up X2. 12:05 No provider procedures requiring assistance completed. me1 12:21 Initial lab(s) drawn, by me, sent to lab. Inserted saline lock: 22 gauge in right me1 antecubital area, using aseptic technique. 12:21 Magnesium Sent. me1 12:21 NT PRO-BNP Sent. me1 12:21 Troponin HS Sent. me1 12:22 CBC with Automated Diff Sent. me1 12:22 Comprehensive Metabolic Panel Sent. me1 13:22 XRAY Chest (1 view) In Process Unspecified. EDMS 13:30 Izabel Vaughan, RN is Primary Nurse. me1 16:12 Lab(s) recollected, by me, sent to lab. zm 16:51 IV discontinued, intact, bleeding controlled. ld1 Administered Medications: 15:18 Drug: Rocephin IV 1 grams IV at bolus once; Given slow IV push per pharmacy ld1 instructions Route: IV; Rate: bolus; Site: right antecubital; 16:55 Follow up: IV Status: Completed infusion id 16:20 Drug: Potassium Chloride PO 40 mEq PO once Route: PO; id 16:55 Follow up: Response: No adverse reaction id Medication: 12:05 VIS not applicable for this client. me1 Outcome: 15:41 Discharge ordered by . jj9 16:49 Discharged to home via wheelchair, with family, ld1 16:49 Condition: stable 16:49 Discharge instructions given to patient, family, Instructed on discharge instructions, Demonstrated understanding of instructions, follow-up care, medications, Prescriptions given X 1, 16:55 Patient left the ED. id Addendum: 09/09/2024 16:45 Addendum: Culture Results: Positive urine culture. No further action required. Bacteria h b sensitive to prescribed antibiotic. Signatures: Dispatcher [employer] EDMS Alyson Goldberg RN RN Sofia Pedraza RN RN ap3 Vale White RN RN ld1 Maria M Mercer Michelle, RN RN me1 Jonatan Sosa MD MD jj9 Matthew, Mena Chow RN RN id Corrections: (The following items were deleted from the chart) 09/06 12:23 11:29 Chief complaint: Patient states: she has been having frequent falls, and increase me1 in urination over the last few days. patient also reports that she is starting to having "blood in her urination." ap3 13:30 11:29 Chief complaint: Patient states: she has been having frequent falls, and increase me1 in urination over the last few days. patient also reports that she is starting to having "blood in her urination." me1
--- NOTE | 2024-09-06 15:42 | EDPHYS ---
Physician Documentation [facility] Name: Brooke Jackson Age: 63 yrs Sex: Female : 1960 Arrival Date: 09/06/2024 Time: 11:16 Bed 5 Private MD: ED Physician Jonatan Sosa HPI: 09/06 15:36 63-year-old female returns emergency department for evaluation of not feeling well. The jj9 patient reports she noticed her urine has been changing color for the last couple of days. The patient was seen here recently and electrolytes were replaced she was found to have hypokalemia. She denies chest pain, shortness of breath, fever, chills or any other problems.. Historical: - Allergies: :31 No Known Allergies; ap3 - Home Meds: :31 Plavix Oral [Active]; Lipitor Oral [Active]; Potassium Chloride Oral [Active]; ap3 Verapamil Oral [Active]; - PMHx: 11:31 CVA; Hypertension; Rheumatoid Arthritis; ap3 - Immunization history:: Client reports receiving the 2nd dose of the Covid vaccine, Flu vaccine is up to date. - Infectious Disease History:: Denies. - Social history:: Smoking status: Patient denies any tobacco usage or history of. ROS: 15:37 : Positive for urinary symptoms, jj9 20:19 Constitutional: Negative for fever, chills, and weight loss, Eyes: Negative for injury, jj9 pain, redness, and discharge, ENT: Negative for injury, pain, and discharge, Neck: Negative for injury, pain, and swelling, Cardiovascular: Negative for chest pain, palpitations, and edema, Respiratory: Negative for shortness of breath, cough, wheezing, and pleuritic chest pain, Abdomen/GI: Negative for abdominal pain, nausea, vomiting, diarrhea, and constipation, MS/Extremity: Negative for injury and deformity, Skin: Negative for injury, rash, and discoloration, Neuro: Negative for headache, weakness, numbness, tingling, and seizure, Exam: 15:38 Abdomen/GI: Soft, non-tender, with normal bowel sounds. No distension or tympany. No jj9 guarding or rebound. No evidence of tenderness throughout. 16:16 Constitutional: This is a well developed, well nourished patient who is awake, alert, jj9 and in no acute distress. Head/Face: Normocephalic, atraumatic. Eyes: Pupils equal round and reactive to light, extra-ocular motions intact. Lids and lashes normal. Conjunctiva and sclera are non-icteric and not injected. Cornea within normal limits. Periorbital areas with no swelling, redness, or edema. ENT: Nares patent. No nasal discharge, no septal abnormalities noted. Tympanic membranes are normal and external auditory canals are clear. Oropharynx with no redness, swelling, or masses, exudates, or evidence of obstruction, uvula midline. Mucous membranes moist. Neck: Trachea midline, no thyromegaly or masses palpated, and no cervical lymphadenopathy. Supple, full range of motion without nuchal rigidity, or vertebral point tenderness. No Meningismus. Chest/axilla: Normal chest wall appearance and motion. Nontender with no deformity. No lesions are appreciated. Cardiovascular: Regular rate and rhythm with a normal S1 and S2. No gallops, murmurs, or rubs. Normal PMI, no JVD. No pulse deficits. Respiratory: Lungs have equal breath sounds bilaterally, clear to auscultation and percussion. No rales, rhonchi or wheezes noted. No increased work of breathing, no retractions or nasal flaring. Skin: Warm, dry with normal turgor. Normal color with no rashes, no lesions, and no evidence of cellulitis. MS/ Extremity: Pulses equal, no cyanosis. Neurovascular intact. Full, normal range of motion. Neuro: Awake and alert, GCS 15, oriented to person, place, time, and situation. Cranial nerves II-XII grossly intact. Motor strength 5/5 in all extremities. Sensory grossly intact. Cerebellar exam normal. Normal gait. Psych: Awake, alert, with orientation to person, place and time. Behavior, mood, and affect are within normal limits. Vital Signs: 11:29 BP 125 / 89; Pulse 93; Resp 18; Temp 99.9; Pulse Ox 98% on R/A; Weight 69.85 kg; Height ap3 5 ft. 2 in. ; 12:00 BP 112 / 62; Pulse 91; Resp 18; Pulse Ox 96% ; me1 13:00 BP 110 / 72; Pulse 83; Resp 19; Pulse Ox 95% ; me1 14:00 BP 117 / 64; Pulse 82; Resp 20; Pulse Ox 96% ; me1 16:21 BP 115 / 75; Pulse 91; Resp 16; Pulse Ox 96% on R/A; id 11:29 Body Mass Index 28.17 (69.85 kg, 157.48 cm) ap3 MDM: 11:32 Medical Screening Exam initiated j9 15:38 Differential Diagnosis sepsis, flu, UTI, pyelo-, infection, pneumonia, etc.. Data [facility] reviewed: vital signs, nurses notes, old medical records, Recently evaluated for hypokalemia. lab test result(s), CBC, electrolytes, urinalysis. ED course: 63-year-old female comes emergency department for evaluation of urinary symptoms patient has been noticing her urine darker over the last couple of days. Labs were requested urinalysis consistent with UTI. Patient remains hemodynamically stable otherwise she is afebrile with normal vital signs. Dose of Rocephin was given in emergency department. Will start the patient on oral antibiotics Vantin p.o. twice daily. Advised to continue home medications, follow with PCP and return to the ED if worsening of symptoms. The patient understands and agrees with the plan.. 09/06 11:56 Order name: CBC with Automated Diff; Complete Time: 13:57 [facility] 09/06 11:56 Order name: Comprehensive Metabolic Panel; Complete Time: 13:57 [facility] 09/06 11:56 Order name: Urinalysis w/ reflexes; Complete Time: 13:57 [facility] 09/06 12:23 Order name: Urine Culture [facility] 09/06 12:12 Order name: XRAY Chest (1 view); Complete Time: 13:57 [facility] 09/06 11:41 Order name: Labs collected and sent; Complete Time: 12:22 [facility] 09/06 12:12 Order name: Cardiac monitoring; Complete Time: 15:05 [facility] 09/06 12:12 Order name: EKG - Nurse/Tech; Complete Time: 15:12 [facility] 09/06 12:12 Order name: IV Saline Lock; Complete Time: 12:21 [facility] 09/06 12:12 Order name: Labs collected and sent; Complete Time: 12:21 [facility] 09/06 12:12 Order name: O2 Per Protocol; Complete Time: 12:21 [facility] 09/06 12:12 Order name: O2 Sat Monitoring; Complete Time: 12:21 j9 09/06 14:37 Order name: Labs - recollect needed: collect green top for troponin and cmp; Complete bd Time: 15:12 09/06 15:21 Order name: Labs - recollect needed: recollect green top; Complete Time: 16:11 bd Administered Medications: 15:18 Drug: Rocephin IV 1 grams IV at bolus once; Given slow IV push per pharmacy ld1 instructions Route: IV; Rate: bolus; Site: right antecubital; 16:55 Follow up: IV Status: Completed infusion id 16:20 Drug: Potassium Chloride PO 40 mEq PO once Route: PO; id 16:55 Follow up: Response: No adverse reaction id Disposition Summary: 09/06/24 15:41 Discharge Ordered Notes: Location: Home jj9 Condition: Stable jj9 Problem: new jj9 Diagnosis - UTI/ Urinary tract infection, site not specified jj9 Followup: jj9 - With: Private Physician - When: 48 Hours - Reason: Discharge Instructions: - Discharge Summary Sheet jj9 - Urinary Tract Infection, Adult, [id number] jj9 Forms: - Medication Reconciliation Form jj9 - Antibiotic Education jj9 - Prescription Opioid Use jj9 - Patient Portal Instructions jj9 - Leadership Thank You Letter jj9 Prescriptions: - cefpodoxime 200 mg Oral tablet - take 2 tablets ORAL route every 12 hours with food; 14 tablet; Refills: 0, jj9 Product Selection Permitted Signatures: Dispatcher [employer] EDMS Abbie Washburn Amanda, RN RN ap3 Vale White RN RN ld1 Jonatan Sosa MD MD jj9 Mena Castro RN RN id Corrections: (The following items were deleted from the chart) 12:12 12:12 MAGNESIUM+C.LAB.BRZ ordered. EDMS EDMS 12:12 12:12 PROBNP+C.LAB.BRZ ordered. EDMS EDMS 12:12 12:12 Troponin High Sensitivity+C.LAB.BRZ ordered. EDMS EDMS 12:12 12:12 Chest Single View+RAD.RAD.BRZ ordered. EDMS EDMS
[2024-09-06] MEDS ORDERED: POTASSIUM CL SA 10 MEQ TAB PO ONE (16:08)
[2024-09-06 17:39] VITALS: TEMP 99.9
[2024-09-06 17:42] VITALS: O2SAT 96
[2024-09-06 17:43] VITALS: BP 115/75
--- NOTE | 2024-09-09 14:51 | EKG ---
Test Date: 2024-09-06 Test Time: 15:07:24 Senior Accountant: LEAH MEASUREMENT RESULTS: Intervals: Rate: 81 NC: 142 QRSD: 74 QT: 392 QTc: 455 [place]: P: 74 NC: 142 QRS: 65 T: 62 INTERPRETIVE STATEMENTS: Normal sinus rhythm Nonspecific T wave abnormality Abnormal ECG Compared to ECG 08/31/2024 10:40:45 T-wave abnormality now present Myocardial infarct finding no longer present Electronically Signed On 09-09-24 14:43:47 CDT by Pravin Degroot
== END 2024-09-06 16:55 | disposition home or self-care (01) ==
LOC: ER 11:16
DX: N39.0 Urinary tract infection, site not specified (principal); Z79.01 Long term (current) use of anticoagulants
CPT/HCPCS: 96365; 93005; 87088; 85025; 81001; 87086; 36415; 80053; 71045; 99285; 96366; J0696; 87077; 87186